=== PATIENT | male | born 1955 | race Caucasian/White ===

== ENCOUNTER → 2016-11-08 | Outpatient (CLI) | payer OTHER ==
[~2016-11-08] MED LIST: CPR500T PO; HYOS0.1216 PO; NO HOME MEDS; OXYC1TAB87 PO; PHEN200T27 PO
--- NOTE | 2016-11-08 19:52 | Diagnostic Imaging Report ---
PROCEDURE: CT cervical spine without contrast. TECHNIQUE: Multiple contiguous axial images were obtained through the cervical spine without the use of intravenous contrast. Sagittal and coronal reformations were then performed. INDICATION: Post cervical spine surgery in May 2016. No improvement in the pain postoperative. Pain on both sides of his neck radiating to both shoulders and headache. CORRELATION STUDY: MRI 07/16/2016 FINDINGS: There is straightening with very mild reversal of the normal cervical lordosis. Trace anterolisthesis of C3 on C4. Interbody fusion hardware at C5-C6 level is present with some metallic artifact. Hardware appears to be within the of disc space. Cervical vertebral body heights are maintained. Odontoid unremarkable. At C2-C3 and C3-C4, there is minimal density in the ventral spinal canal may be reflective of minimal endplate osteophyte or disc but results in no significant stenosis.. C4-C5 level with moderate loss of disc space height. No significant stenosis. C5-C6 level, fused, demonstrates extensive artifact over the spinal canal but appears to be without significant spinal canal stenosis. Neuroforamina are also obscured. However, some degree of endplate osteophyte with spurring does appear to be present, particularly on the left but does appear to be likely bilateral foraminal narrowing present. C6-C7 level with mild to moderate loss of disc space height. No significant stenosis. C7-T1 level unremarkable. IMPRESSION: 1. Interbody fusion of C5-C6 level with metallic artifact present. However, there does appear to be some degree of narrowing of the neuroforamina at this level owing to predominantly endplate spur-like formation. 2. Additional areas of mild disc space narrowing without findings to suggest significant canal or foraminal narrowing. Dictated by: Dictated on workstation # [id number]
== END ==
LOC: RAD 16:48
PROVIDERS: ATTEND Orthopaedic Surgery Orthopaedic Surgery of the Spine
DX: M54.2 Cervicalgia (principal); Z98.1 Arthrodesis status
CPT/HCPCS: 72125

== ENCOUNTER 2017-10-07 08:09 | Day surgery (SDC) | payer OTHER ==
[~2017-10-07] VITALS: Ht 180.3 cm; Wt 79.5 kg
[2017-10-07] VITALS (9 sets, daily range): BP systolic 118–146; BP diastolic 87–101
[2017-10-07 08:59] LABS: HEMOGLOBIN 14.5 G/DL (13.3-17.7); MEAN PLATELET VOLUME 10.5 FL (7.4-10.4); RED BLOOD COUNT 4.37 10^6/uL (4.35-5.85); RED CELL DISTRIBUTION WIDTH 12.1 % (10.0-14.5); WHITE BLOOD COUNT 4.6 10^3/uL (4.3-11.0)
[2017-10-07 09:06] LABS: INR 1.1 (0.8-1.4); PROTHROMBIN TIME PATIENT 13.8 SEC (12.2-14.7)
[2017-10-07] MEDS ORDERED: DICL75TA2 PO (09:25)
[2017-10-07] MEDS ORDERED: ACETAMINOPHEN 500 MG TAB (TYLENOL) PO PRN (10:15)
[2017-10-07] MEDS ORDERED: IOHEXOL 240 MGI/ML 20 ML (OMNIPAQUE) VIAL IV ONE (10:15)
--- NOTE | 2017-10-07 10:37 | Diagnostic Imaging Report ---
INDICATION: Neck pain. Patient present for cervical myelography. PROCEDURE: Patient was brought to the fluoroscopy suite, placed on the table in the prone position. Skin in the low back was prepped and draped in usual sterile fashion. Small amount of 1% lidocaine was utilized for local anesthesia. 22-gauge spinal needle was advanced into lumbar thecal sac at the L3 level. Approximately 12 mL of Omnipaque 240 was injected under fluoroscopic observation. Patient was then placed into Trendelenburg position to pass intrathecal contrast into the cervical canal. Patient tolerated the procedure well and was sent to CT for post myelography CT. A total of 1 minute and 12 seconds fluoroscopic time was utilized. IMPRESSION: Cervical myelography, as described. Further evaluation will be performed with post myelography CT. Dictated by: Dictated on workstation # [id number]
--- NOTE | 2017-10-07 11:47 | Pre-Procedure Progress Note ---
Pre-Procedure Progress Note H&P Reviewed The H&P was reviewed, patient examined and no changes noted. Date H&P Reviewed: Oct 07, 2017 Time H&P Reviewed: 09:00 Pre-Procedure Diagnosis: Neck pain. LIZA MORGAN MD Oct 07, 2017 11:47
--- NOTE | 2017-10-07 12:02 | Diagnostic Imaging Report ---
CLINICAL INDICATION: Patient with spinal stenosis. EXAM: Axial CT cervical myelogram with sagittal and coronal reformations. The injection of intrathecal contrast was performed by another physician. Please see their notes regarding the procedure. COMPARISON: CT scan of the cervical spine without contrast dated 11/08/2016. FINDINGS: Intrathecal contrast is seen within the thecal sac of the cervical spine and upper thoracic spine region. There is also intrathecal contrast seen extending to the posterior fossa. There is no intrathecal mass seen. There are again seen postop changes to the cervical spine with C5-C6 intervertebral disc prosthesis seen with no gross hardware complications. There is no acute cervical spine fracture. There is multilevel cervical spine degenerative disease with vertebral body spurs and mild facet arthropathy. C1-C2: There are stable degenerative spurs involving the atlanto-odontoid interval anteriorly. C2-C3: There is suspected small posterior disc herniation with mild thickening of the anterior epidural space region. There is no significant central canal or neuroforaminal narrowing. C3-C4: There is subtle stable grade 1 anterolisthesis of C3 on C4. There is suspected diffuse disc bulge with mild loss of intervertebral disc height and posterior disc herniation. There is mild central canal narrowing. There is mild left neuroforaminal narrowing. C4-C5: There is diffuse disc bulge with mild loss of intervertebral disc height. There is mild bilateral facet arthropathy. There is mild left neuroforaminal narrowing and no significant central canal narrowing. There is no significant right neuroforaminal narrowing. C5-C6: Intervertebral disc prosthesis seen with no complications. There are stable bilateral hypertrophic uncinate spurs (left side more than the right). There is stable mild to moderate bilateral bony neuroforaminal narrowing. C6-C7: There is suggestion of diffuse disc bulge with suspected small posterior disc osteophyte complex component. There is mild bilateral facet arthropathy. There is stable mild to moderate left bony neuroforaminal narrowing and mild right neuroforaminal narrowing. There is mild central canal narrowing. C7-T1: There is mild bilateral facet arthropathy. There is mild left neuroforaminal narrowing. There is no significant right neuroforaminal narrowing or central canal narrowing. IMPRESSION: 1: Stable C5-C6 intervertebral disc prosthesis with no complications. 2: Stable mild to moderate cervical spine degenerative disc disease, as described above. There is no significant central canal narrowing. Dictated by: Dictated on workstation # [id number]
== END 2017-10-07 13:20 | disposition home or self-care (01) ==
LOC: RAD 08:09
PROVIDERS: ATTEND Orthopaedic Surgery Orthopaedic Surgery of the Spine
DX: M48.03 Spinal stenosis, cervicothoracic region (principal); M50.221 Other cervical disc displacement at C4-C5 level; M46.83 Other specified inflammatory spondylopathies, cervicothoracic region; M43.12 Spondylolisthesis, cervical region; Z98.890 Other specified postprocedural states
CPT/HCPCS: 36415; 62284; 72126; 72240; 77002; 85027; 85610; 85730

== ENCOUNTER → 2018-11-14 | Outpatient (CLI) | payer OTHER ==
[~2018-11-14] MED LIST changes: +DICL75TA2 PO
--- NOTE | 2018-11-14 14:49 | Diagnostic Imaging Report ---
PROCEDURE: CT cervical spine without contrast. TECHNIQUE: Multiple contiguous axial images were obtained through the cervical spine without the use of intravenous contrast. Sagittal and coronal reformations were then performed. Auto Exposure Controls were utilized during the CT exam to meet ALARA standards for radiation dose reduction. INDICATION: Pain, radiculopathy and neck pain. COMPARISON: Compared with study 10/07/2017. FINDINGS: A solid and well incorporated anterior and interbody fusion C5-6 and C6-C7 have been performed. The alignment across, above and below the fusion is stable and anatomic. No osteolysis. No findings to suggest screw loosening or migration. No paravertebral mass, hemorrhage or fluid collection. There is no substantial bony canal stenosis. No substantial degree of foraminal encroachment. There has been no adverse development. IMPRESSION: Resolution of foraminal stenoses status post interval solid anterior and interbody multilevel lower cervical fusion, aligned anatomically. No findings of pseudoarthrosis or failure. No acute pathology or adverse development. Dictated by: Dictated on workstation # [id number]
== END ==
LOC: RAD 12:18
PROVIDERS: ATTEND Physician Assistant
DX: M54.12 Radiculopathy, cervical region (principal); Z98.1 Arthrodesis status
CPT/HCPCS: 72125

== ENCOUNTER 2020-11-21 11:26 | Outpatient (RCR) | payer OTHER | END 2020-11-29 | disposition home or self-care (01) | PROVIDERS: ATTEND Nurse Practitioner | DX: M54.2 Cervicalgia (principal); M62.89 Other specified disorders of muscle; Z98.1 Arthrodesis status ==

== ENCOUNTER 2020-12-07 16:15 | Outpatient (RCR) | payer OTHER | END 2021-01-25 16:15 | disposition home or self-care (01) | PROVIDERS: ATTEND Nurse Practitioner | DX: M22.42 Chondromalacia patellae, left knee (principal) ==

== ENCOUNTER 2021-02-23 15:44 | Outpatient (RCR) | payer OTHER | END 2021-03-05 | disposition home or self-care (01) | PROVIDERS: ATTEND Nurse Practitioner | DX: M54.2 Cervicalgia (principal); Z98.1 Arthrodesis status ==

== ENCOUNTER 2021-05-25 15:45 | Outpatient (RCR) | payer OTHER | END 2021-06-07 | disposition home or self-care (01) | PROVIDERS: ATTEND Nurse Practitioner | DX: M54.2 Cervicalgia (principal); Z98.1 Arthrodesis status ==

== ENCOUNTER 2021-08-08 10:28 | Outpatient (RCR) | payer OTHER | END 2021-08-11 | disposition home or self-care (01) | PROVIDERS: ATTEND Nurse Practitioner | DX: M54.2 Cervicalgia (principal); Z98.1 Arthrodesis status ==

== ENCOUNTER 2021-09-04 13:04 | Outpatient (RCR) | payer OTHER | END 2021-09-11 | disposition home or self-care (01) | PROVIDERS: ATTEND Nurse Practitioner | DX: M54.2 Cervicalgia (principal); Z98.1 Arthrodesis status ==

== ENCOUNTER 2021-09-20 14:56 | Outpatient (RCR) | payer OTHER | END 2021-10-09 | disposition home or self-care (01) | PROVIDERS: ATTEND Nurse Practitioner | DX: M54.2 Cervicalgia (principal); Z98.1 Arthrodesis status ==

== ENCOUNTER 2021-11-08 10:31 | Outpatient (RCR) | payer OTHER | END 2021-11-09 | disposition home or self-care (01) | PROVIDERS: ATTEND Nurse Practitioner | DX: M54.2 Cervicalgia (principal); Z98.1 Arthrodesis status ==

== ENCOUNTER 2021-11-11 08:43 | Emergency (ER) | payer OTHER ==
[~2021-11-11] VITALS: Ht 180.3 cm; Wt 78.0 kg
[2021-11-11] MEDS ORDERED: LIDOCAINE 1% INJ 50 ML (XYLOCAINE) VIAL ONE (09:13)
[2021-11-11] MEDS ORDERED: LIDOCAINE 1% INJ 20 ML VIAL INJ ONE (09:15)
[2021-11-11] MEDS ORDERED: TETANUS,DIPTH,PERTUSS P/F (BOOSTRIX) 0.5 ML VIAL IM ONE (09:15)
--- NOTE | 2021-11-11 09:38 | ED General ---
General Chief Complaint: Laceration Stated Complaint: LEFT THUMB LAC Nursing Triage Note: CUT THUMB WITH CLEAN KNIFE FROM KITCHEN DRAWER. BLEEDING HAS STOPPED. PT CLEANED AND COVERED WOUND LOKIE ENGINEER. UNSURE OF LAST TETANUS SHOT, BUT STATES THAT THE KNIFE WAS CLEAN. Source of Information: Patient Exam Limitations: No Limitations History of Present Illness Date Seen by Provider: Nov 11, 2021 Time Seen by Provider: 09:05 Initial Comments This 66-year-old gentleman presents to the emergency room with laceration at the base of his left thumb. He slipped while cutting sausage at breakfast. The knife was clean. He appears to have full range of motion and strength in the thumb. There is no distal change in sensation. Bleeding is controlled. He is uncertain of his tetanus immunization status. Allergies and Home Medications Allergies Coded Allergies: Meperidine HCl (Unverified Allergy, 02/01/12) morphine (Verified Adverse Reaction, Intermediate, hives, 02/10/12) Patient Home Medication List Home Medication List Reviewed: Yes Diclofenac Sodium (Diclofenac Sodium) 75 Mg Tablet.dr, 75 MG PO BID, (Reported) Entered as Reported by: GENESIS MCCOLLUM on 10/07/17 0925 Review of Systems Review of Systems Constitutional: no symptoms reported Musculoskeletal: no symptoms reported Skin: see HPI Psychiatric/Neurological: No Symptoms Reported Past Uqdsska-Krtgcp-Jynnpk Hx Patient Social History Tobacco Use?: No Use of E-Cig and/or Vaping dev: No Substance use?: No Alcohol Use?: No Pt feels they are or have been: No Immunizations Up To Date Tetanus Booster (TDap): Unknown PED Vaccines UTD: No Influenza Vaccine Up-to-Date: No; Not Current Past Medical History Surgeries: Yes Amputation (Traumatic amputation right great toe) Respiratory: No Cardiac: No Neurological: No Reproductive Disorders: No Genitourinary: Yes Kidney Stones Gastrointestinal: No Musculoskeletal: No Endocrine: No HEENT: No Cancer: No Psychosocial: No Physical Exam Vital Signs Vital Signs - First Documented 11/11/21 08:53 Temp 37.0 Pulse 69 Resp 18 B/P (MAP) 162/101 (121) Pulse Ox 98 O2 Delivery Room Air Capillary Refill : Less Than 3 Seconds Height, Weight, BMI Height: 5'11.00" Weight: 175lbs. 6.0oz. [id number]; 23.00 BMI Method:Stated General Appearance: No Apparent Distress, WD/WN HEENT: Normal ENT Inspection Respiratory: Lungs Clear, Normal Breath Sounds, No Accessory Muscle Use Cardiovascular: Regular Rate, Rhythm, No Murmur Extremity: Other (1.5 cm laceration on the medial aspect of the left thumb into the subcutaneous tissue. No tendon injury observed. Distal sensation intact. Range of motion and strength intact) Neurologic/Psychiatric: Alert, Oriented x3, No Motor/Sensory Deficits, Normal Mood/Affect Skin: Normal Color, Warm/Dry, Other (See extremity exam above) Procedures/Interventions Wound Location: Upper Extremities Other Wound Location Medial aspect at the base of left thumb Wound Length (cm): 1.5 Wound's Depth, Shape: linear, irregular, sub Q Wound Explored: clean Irrigated w/ Saline (ccs): 100 Betadine Prep?: Yes Anesthesia: 1% Lidocaine Volume Anesthetic (ccs): 3 Suture: Prolene Suture Size: 4-0 Number of Sutures: 3 Layer Closure?: 1 Sterile Dressing Applied?: Yes Progress Wound was sprayed with lidocaine. Skin was cleaned with alcohol. Anesthesia was provided with local lidocaine injection. Wound was then scrubbed with chlorhexidine and saline and rinsed. Betadine prep was applied. Wound was approximated by Karlo Kern, MS 4 under my supervision. There was good hemostasis. Progress/Results/Core Measures Suspected Sepsis SIRS Temperature: Pulse: 69 Respiratory Rate: 18 Blood Pressure 162 /101 Mean: 121 Results/Orders My Orders Orders - BANDAR ROOT MD Lidocaine 1% Inj 20 Ml (Xylocaine 1% Inj (11/11/21 09:15) Dipht,Pertuss(Acell),Tet Adult (Boostrix (11/11/21 09:15) Lidocaine 1% Inj 50 Ml (Xylocaine 1% Inj (11/11/21 09:13) Medications Given in ED Vital Signs/I&O 11/11/21 11/11/21 08:53 09:40 Temp 37.0 Pulse 69 63 Resp 18 18 B/P (MAP) 162/101 (121) 147/89 Pulse Ox 98 99 O2 Delivery Room Air Room Air Capillary Refill : Less Than 3 Seconds Blood Pressure Mean: 121 Departure Impression Primary Impression: Laceration of thumb Qualified Codes: S61.012A - Laceration without foreign body of left thumb without damage to nail, initial encounter Disposition: 01 HOME, SELF-CARE Condition: Improved Departure-Patient Inst. Referrals: NO,LOCAL PHYSICIAN (PCP/Family) Primary Care Physician Patient Instructions: Laceration Repair With Stitches (DC) Add. Discharge Instructions: Keep the wound clean and dry. Starting this evening you may wash your hands gently. Be careful not to rub over the stitches or disrupt the stitches in any way. Do not submerge until sutures are removed. Monitor for signs of infection such as increasing redness, increasing swelling, puslike drainage, or fever. Return to care promptly if you notice the symptoms. Keep the wound covered when you are sleeping, active, or in dirty environments. Leave open to air when resting in a clean environment. Return in 8 to 10 days to have sutures removed. Call with questions or concerns. Return to care if you have any other problems or concerns. All discharge instructions reviewed with patient and/or family. Voiced understanding. BANDAR ROOT MD Nov 11, 2021 09:38
[2021-11-11 09:40] VITALS: BP 147/89
== END 2021-11-11 09:47 | disposition home or self-care (01) ==
LOC: EDUNIT# 08:43 → ER 08:45
DX: S61.012A Laceration without foreign body of left thumb without damage to nail, initial encounter (principal); Z23 Encounter for immunization; W26.0XXA Contact with knife, initial encounter
CPT/HCPCS: 12001; 90715

== ENCOUNTER → 2022-04-11 | Outpatient (RCR) | payer MEDICARE, OTHER | END | disposition home or self-care (01) | PROVIDERS: ATTEND Anesthesiology Pain Medicine | DX: M46.92 Unspecified inflammatory spondylopathy, cervical region (principal) ==

== ENCOUNTER → 2022-05-11 | Outpatient (RCR) | payer MEDICARE, OTHER | END | disposition home or self-care (01) | PROVIDERS: ATTEND Anesthesiology Pain Medicine | DX: M46.92 Unspecified inflammatory spondylopathy, cervical region (principal) ==

== ENCOUNTER 2022-06-06 09:40 | Outpatient (RCR) | payer MEDICARE, OTHER | END 2022-06-11 | disposition home or self-care (01) | PROVIDERS: ATTEND Anesthesiology Pain Medicine | DX: M46.92 Unspecified inflammatory spondylopathy, cervical region (principal); M79.12 Myalgia of auxiliary muscles, head and neck ==

== ENCOUNTER → 2022-07-11 | Outpatient (RCR) | payer MEDICARE, OTHER | END | disposition home or self-care (01) | PROVIDERS: ATTEND Anesthesiology Pain Medicine | DX: M46.92 Unspecified inflammatory spondylopathy, cervical region (principal) ==

== ENCOUNTER 2022-08-08 11:17 | Outpatient (RCR) | payer MEDICARE, OTHER | END 2022-08-11 | disposition home or self-care (01) | PROVIDERS: ATTEND Anesthesiology Pain Medicine | DX: M79.12 Myalgia of auxiliary muscles, head and neck (principal); M46.92 Unspecified inflammatory spondylopathy, cervical region ==

== ENCOUNTER 2022-09-05 09:07 | Outpatient (RCR) | payer MEDICARE, OTHER | END 2022-09-11 | disposition home or self-care (01) | PROVIDERS: ATTEND Anesthesiology Pain Medicine | DX: M79.12 Myalgia of auxiliary muscles, head and neck (principal); M46.92 Unspecified inflammatory spondylopathy, cervical region ==

== ENCOUNTER 2022-10-03 11:26 | Outpatient (RCR) | payer MEDICARE, OTHER | END 2022-10-09 | disposition home or self-care (01) | PROVIDERS: ATTEND Anesthesiology Pain Medicine | DX: M79.12 Myalgia of auxiliary muscles, head and neck (principal); M46.92 Unspecified inflammatory spondylopathy, cervical region ==

== ENCOUNTER 2022-10-31 14:22 | Outpatient (RCR) | payer MEDICARE, OTHER | END 2022-11-09 | disposition home or self-care (01) | PROVIDERS: ATTEND Anesthesiology Pain Medicine | DX: M79.12 Myalgia of auxiliary muscles, head and neck (principal); M46.92 Unspecified inflammatory spondylopathy, cervical region ==

== ENCOUNTER 2022-11-28 11:14 | Outpatient (RCR) | payer MEDICARE, OTHER | END 2022-12-09 | disposition home or self-care (01) | PROVIDERS: ATTEND Anesthesiology Pain Medicine | DX: M79.12 Myalgia of auxiliary muscles, head and neck (principal); M46.92 Unspecified inflammatory spondylopathy, cervical region ==

== ENCOUNTER → 2023-01-09 | Outpatient (RCR) | payer MEDICARE, OTHER | END | disposition home or self-care (01) | PROVIDERS: ATTEND Anesthesiology Pain Medicine | DX: M79.12 Myalgia of auxiliary muscles, head and neck (principal); M46.92 Unspecified inflammatory spondylopathy, cervical region ==

== ENCOUNTER 2023-03-26 11:17 | Emergency (ER) | payer MEDICARE, OTHER ==
[~2023-03-26] VITALS: Ht 180.3 cm; Wt 86.1 kg
--- NOTE | 2023-03-26 11:56 | ED GU-Male ---
General Chief Complaint: Back Problems Stated Complaint: KIDNEY PAIN | HX OF KIDNEY STONES Nursing Triage Note: PT AMB TO RM 7 WITH CC OF L LOWER BACK PAIN AND BURNING WITH URINATION SINCE 0700 THIS AM. PT BELIEVES HE IS PASSING A KIDNEY STONE. DENIES INJURY Source: patient Exam Limitations: no limitations (VERÓNICA NORMAN APRN) History of Present Illness Date Seen by Provider: Mar 26, 2023 Time Seen by Provider: 11:40 Initial Comments 67-year-old male presents to the ER with complaint of left flank pain starting this morning at 7:15 AM. He states he has a history of kidney stones, states that this feels the same. Last kidney stone was 10 to 15 years ago. Reports history of lithotripsy and ureteral stents. He reports that he was having pain for approximately 4 hours, states that the pain has now subsided. Denies radiation of pain into abdomen. Reports vomiting due to the pain, denies any nausea currently. Reports dysuria, denies fevers. (VERÓNICA NORMAN APRN) Allergies and Home Medications Allergies Coded Allergies: meperidine HCl (Unverified Allergy, Unknown, 03/26/23) morphine (Verified Adverse Reaction, Intermediate, hives, 02/10/12) Patient Home Medication List Home Medication List Reviewed: Yes (VERÓNICA NORMAN APRN) Diclofenac Sodium (Diclofenac Sodium) 75 Mg Tablet.dr, 75 MG PO BID, (Reported) Entered as Reported by: GENESIS MCCOLLUM on 10/07/17 0925 Tamsulosin HCl (Flomax) 0.4 Mg Cap, 0.4 MG PO DAILY Prescribed by: Verónica Woods on 03/26/23 1326 Review of Systems Review of Systems Constitutional: see HPI (VERÓNICA NORMAN APRN) Past Uyfxjvg-Rturkl-Qxvjir Hx Patient Social History Tobacco Use?: No Substance use?: No Alcohol Use?: Yes Alcohol Frequency: Once in a while Pt feels they are or have been: No (VERÓNICA NORMAN APRN) Immunizations Up To Date Tetanus Booster (TDap): Unknown PED Vaccines UTD: No (VERÓNICA NORMAN APRN) Past Medical History Surgery/Hospitalization HX: EYE CANCER Surgeries: Yes Amputation Respiratory: No Cardiac: No Neurological: No Reproductive Disorders: No Genitourinary: Yes Kidney Stones Gastrointestinal: No Musculoskeletal: No Endocrine: No HEENT: No Cancer: No Psychosocial: No (VERÓNICA NORMAN APRN) Physical Exam Vital Signs Vital Signs - First Documented 03/26/23 11:25 Pulse 75 Resp 18 B/P (MAP) 147/105 (119) Pulse Ox 97 O2 Delivery Room Air (BANDAR ROOT MD) Vital Signs Capillary Refill : Less Than 3 Seconds (VERÓNICA NORMAN APRN) Height, Weight, BMI Height: 5'11.00" Weight: 175lbs. 6.0oz. [id number]; 26.00 BMI Method:Stated General Appearance: WD/WN, no apparent distress Neck: supple, normal inspection Cardiovascular: regular rate, rhythm Respiratory: lungs clear, normal breath sounds, no respiratory distress, no accessory muscle use Back: no CVA tenderness Extremities: normal range of motion, normal inspection Neurologic/Psychiatric: alert, normal mood/affect Skin: normal color, warm/dry (VEÓRNICA NORMAN APRN) Procedures/Interventions Suture Size: 4-0 (VERÓNICA NORMAN APRN) Progress/Results/Core Measures Suspected Sepsis SIRS Temperature: Pulse: 75 Respiratory Rate: 18 Laboratory Tests 03/26/23 11:48: White Blood Count 9.4 Blood Pressure 147 /105 Mean: 119 Laboratory Tests 03/26/23 11:48: Creatinine 0.87, Platelet Count 234, Total Bilirubin 0.6 (VERÓNICA NORMAN APRN) Results/Orders Lab Results Laboratory Tests Test 03/26/23 11:48 03/26/23 11:59 Range/Units White Blood Count 9.4 4.3-11.0 10^3/uL Red Blood Count 4.53 4.30-5.52 10^6/uL Hemoglobin 14.7 13.3-17.7 g/dL Hematocrit 46 40-54 % Mean Corpuscular Volume 102 H 80-99 fL Mean Corpuscular Hemoglobin 33 25-34 pg Mean Corpuscular Hemoglobin Concent 32 32-36 g/dL Red Cell Distribution Width 12.1 10.0-14.5 % Platelet Count 234 130-400 10^3/uL Mean Platelet Volume 10.3 9.0-12.2 fL Immature Granulocyte % (Auto) 0 % Neutrophils (%) (Auto) 86 H 42-75 % Lymphocytes (%) (Auto) 9 L 12-44 % Monocytes (%) (Auto) 4 0-12 % Eosinophils (%) (Auto) 1 0-10 % Basophils (%) (Auto) 0 0-10 % Neutrophils # (Auto) 8.0 H 1.8-7.8 10^3/uL Lymphocytes # (Auto) 0.9 L 1.0-4.0 10^3/uL Monocytes # (Auto) 0.4 0.0-1.0 10^3/uL Eosinophils # (Auto) 0.1 0.0-0.3 10^3/uL Basophils # (Auto) 0.0 0.0-0.1 10^3/uL Immature Granulocyte # (Auto) 0.0 0.0-0.1 10^3/uL Sodium Level 140 135-145 MMOL/L Potassium Level 4.4 3.6-5.0 MMOL/L Chloride Level 107 98-107 MMOL/L Carbon Dioxide Level 24 21-32 MMOL/L Anion Gap 9 5-14 MMOL/L Blood Urea Nitrogen 19 H 7-18 MG/DL Creatinine 0.87 0.60-1.30 MG/DL Estimat Glomerular Filtration Rate 96 BUN/Creatinine Ratio 22 Glucose Level 108 H 70-105 MG/DL Calcium Level 9.5 8.5-10.1 MG/DL Corrected Calcium 9.3 8.5-10.1 MG/DL Total Bilirubin 0.6 0.1-1.0 MG/DL Aspartate Amino Transf (AST/SGOT) 20 5-34 U/L Alanine Aminotransferase (ALT/SGPT) 19 0-55 U/L Alkaline Phosphatase 74 40-136 U/L Total Protein 7.8 6.4-8.2 GM/DL Albumin 4.3 3.2-4.5 GM/DL Urine Color YELLOW Urine Clarity CLEAR Urine pH 5.5 5-9 Urine Specific [place] 1.025 H 1.016-1.022 Urine Protein 2+ H NEGATIVE Urine Glucose (UA) NEGATIVE NEGATIVE Urine Ketones TRACE H NEGATIVE Urine Nitrite NEGATIVE NEGATIVE Urine Bilirubin 1+ H NEGATIVE Urine Urobilinogen 0.2 < = 1.0 MG/DL Urine Leukocyte Esterase NEGATIVE NEGATIVE Urine RBC (Auto) 3+ H NEGATIVE Urine RBC >100 H /HPF Urine WBC 0-2 /HPF Urine Crystals NONE /LPF Urine Bacteria TRACE /HPF Urine Casts NONE /LPF Urine Mucus SMALL H /LPF Urine Culture Indicated NO (BANDAR ROOT MD) Vital Signs/I&O 03/26/23 03/26/23 11:25 13:50 Pulse 75 75 Resp 18 18 B/P (MAP) 147/105 (119) 140/100 Pulse Ox 97 97 O2 Delivery Room Air Room Air (BANDAR ROOT MD) Vital Signs/I&O Capillary Refill : Less Than 3 Seconds (VERÓNICA NORMAN APRN) Blood Pressure Mean: 119 Progress Note : Progress Note Patient seen and evaluated, resting in bed, no acute distress. Based on exam and symptoms, differential diagnosis includes but not limited to nephrolithiasis, pyelonephritis, musculoskeletal pain. Work-up initiated in cluded CBC, CMP, urinalysis, CT abdomen pelvis without contrast. IV fluids ordered. Patient currently not having any pain or nausea, will hold off on pain and nausea medications. [address] reviewed. CBC shows slightly elevated neutrophil percentage 86, white blood cells normal. CMP shows slightly elevated BUN 19. Creatinine and GFR normal. Urinalysis shows 3+ RBCs, negative for nitrites, leukocytes, WBCs, shows trace bacteria. Slight asymmetric dilation of the left ureter without ureteral stone, there is a 3 mm stone within the urinary bladder which is likely recently passed. No additional renal or ureteral stones. No hydronephrosis. Results discussed with patient. Will discharge with Flomax to help pass the stone and the remainder of the way. Patient states he does not want any prescriptions for pain or nausea medication. Discharge instructions and return precautions provided. (VERÓNICA NORMAN APRN) Diagnostic Imaging Diagonstic Imaging: CT Plain Films/CT/US/NM/MRI: abdomen, pelvis Comments [facility]. [place], [place] NAME: EUSEBIAJORGE Camilla [facility] REC#: [id number] PT STATUS: DEP ER : 1955 PHYSICIAN: VERÓNICA NORMAN APRN ADMIT DATE: 03/26/23/ER Signed Date of Exam:03/26/23 CT ABD/PELVIS WO(KIDNEY STONE) CT ABD/PELVIS WO(KIDNEY STONE) TECHNIQUE: Unenhanced CT imaging of the abdomen and pelvis was performed. 2-D reformats are created and submitted for interpretation. Automatic exposure controls were utilized to optimize patient dose. INDICATION: Flank pain COMPARISON: None available. FINDINGS: Lower chest: The lung bases are clear. No pericardial or pleural effusion. Peritoneum: No free intraperitoneal air or fluid. Liver and biliary system: Unenhanced liver is normal. The gallbladder is normal. No biliary duct dilation. Spleen and Pancreas: Spleen is normal. Unenhanced pancreas is grossly normal. Adrenals: Normal. tract: No hydronephrosis or renal stones. Slight asymmetric dilation of the left ureter without ureteral stone. However, there is a 3 mm stone in the dependent aspect of the urinary bladder, likely due to a recently passed stone. Urinary bladder is normally filled. Prostate is borderline enlarged. GI tract: Stomach is decompressed. No bowel obstruction. No pericolonic inflammatory changes. Normal appendix. Vasculature and Lymph nodes: Normal caliber aorta. No abdominal or pelvic lymphadenopathy. Musculoskeletal: No concerning osseous lesion. IMPRESSION: 1. There is a 3 mm stone within the urinary bladder likely due to a recently passed stone. Given asymmetric mild distention of the left ureter, this is likely passed on the left side. 2. No additional renal or ureteral stones. No hydronephrosis. Dictated by: Dictated on workstation # [id number] Dict: 03/26/23 1216 Trans: 03/26/23 1416 CV [id number] Interpreted by: JAYESH MASSEY MD Electronically signed by: JAYESH MASSEY MD 03/26/23 1416 (EMERSONVERÓNICA CHASE APRN) Departure Impression Primary Impression: Left nephrolithiasis Disposition: 01 HOME, SELF-CARE Condition: Stable Departure-Patient Inst. Decision time for Depature: 13:24 (VERÓNICA NORMAN APRN) Referrals: RUDDY UREÑA APRN (PCP/Family) Primary Care Physician Patient Instructions: Kidney stones in adults Add. Discharge Instructions: Make sure you drink plenty water. Take Flomax once a day until you pass the stone. Take Tylenol or ibuprofen as needed for pain. Return for any new, concerning, or worsening symptoms. All discharge instructions reviewed with patient and/or family. Voiced understanding. Scripts Tamsulosin HCl (Flomax) 0.4 Mg Cap 0.4 MG PO DAILY for 14 Days, #14 CAP 0 Refills Prov: EMERSONVERÓNICA Umanzor APRN 03/26/23 ATTENDING PHYSICIAN NOTE: I was physically present as attending physician in the emergency department during the care of this patient. I briefly discussed medical therapies for this patient with Verónica Norman NP. I did not personally interview or examine this patient and I was not otherwise directly involved in the decision making or delivery of care for this patient. (BANDAR ROOT MD) VERÓNICA NORMAN APRN Mar 26, 2023 11:56 BANDAR ROOT MD Mar 28, 2023 04:23
[2023-03-26 11:58] LABS: BASOPHILS % (AUTO) 0 % (0-10); EOSINOPHILS # (AUTO) 0.1 10^3/uL (0.0-0.3); EOSINOPHILS % (AUTO) 1 % (0-10); HEMATOCRIT 46 % (40-54); HEMOGLOBIN 14.7 g/dL (13.3-17.7); LYMPHOCYTES # (AUTO) 0.9 10^3/uL (1.0-4.0); LYMPHOCYTES % (AUTO) 9 % (12-44); MEAN CORPUSCULAR HEMOGLOBIN 33 pg (25-34); MEAN CORPUSCULAR HGB CONC 32 g/dL (32-36); MEAN CORPUSCULAR VOLUME 102 fL (80-99); MEAN PLATELET VOLUME 10.3 fL (9.0-12.2); MONOCYTES # (AUTO) 0.4 10^3/uL (0.0-1.0); MONOCYTES % (AUTO) 4 % (0-12); NEUTROPHILS % (AUTO) 86 % (42-75); PLATELET COUNT 234 10^3/uL (130-400); WHITE BLOOD COUNT 9.4 10^3/uL (4.3-11.0)
[2023-03-26] MEDS ORDERED: NS IV 1000 ML 1,000 ML IV SCH (12:00)
[2023-03-26 12:06] LABS: ALBUMIN 4.3 GM/DL (3.2-4.5); POTASSIUM 4.4 MMOL/L (3.6-5.0)
[2023-03-26 12:07] LABS: CALCIUM 9.5 MG/DL (8.5-10.1)
[2023-03-26 12:08] LABS: TOTAL PROTEIN 7.8 GM/DL (6.4-8.2)
[2023-03-26 12:10] LABS: BILIRUBIN,TOTAL 0.6 MG/DL (0.1-1.0)
[2023-03-26 12:12] LABS: CREATININE SERUM 0.87 MG/DL (0.60-1.30)
[2023-03-26 12:22] LABS: CLARITY,URINE CLEAR; COLOR,URINE YELLOW; GLUCOSE, URINE (UA) NEGATIVE (NEGATIVE); PH,URINE 5.5 (5-9); PROTEIN,URINE 2+ (NEGATIVE)
--- NOTE | 2023-03-26 12:22 | Diagnostic Imaging Report ---
CT ABD/PELVIS WO(KIDNEY STONE) TECHNIQUE: Unenhanced CT imaging of the abdomen and pelvis was performed. 2-D reformats are created and submitted for interpretation. Automatic exposure controls were utilized to optimize patient dose. INDICATION: Flank pain COMPARISON: None available. FINDINGS: Lower chest: The lung bases are clear. No pericardial or pleural effusion. Peritoneum: No free intraperitoneal air or fluid. Liver and biliary system: Unenhanced liver is normal. The gallbladder is normal. No biliary duct dilation. Spleen and Pancreas: Spleen is normal. Unenhanced pancreas is grossly normal. Adrenals: Normal. tract: No hydronephrosis or renal stones. Slight asymmetric dilation of the left ureter without ureteral stone. However, there is a 3 mm stone in the dependent aspect of the urinary bladder, likely due to a recently passed stone. Urinary bladder is normally filled. Prostate is borderline enlarged. GI tract: Stomach is decompressed. No bowel obstruction. No pericolonic inflammatory changes. Normal appendix. Vasculature and Lymph nodes: Normal caliber aorta. No abdominal or pelvic lymphadenopathy. Musculoskeletal: No concerning osseous lesion. IMPRESSION: 1. There is a 3 mm stone within the urinary bladder likely due to a recently passed stone. Given asymmetric mild distention of the left ureter, this is likely passed on the left side. 2. No additional renal or ureteral stones. No hydronephrosis. Dictated by: Dictated on workstation # [id number]
[2023-03-26 12:23] LABS: BACTERIA,URINE TRACE /HPF; BILIRUBIN,URINE 1+ (NEGATIVE); KETONES,URINE TRACE (NEGATIVE); LEUKOCYTE ESTERASE ,URINE NEGATIVE (NEGATIVE); NITRITE,URINE NEGATIVE (NEGATIVE); RBC,URINE >100 /HPF; WBC,URINE 0-2 /HPF
[2023-03-26] MEDS ORDERED: TMSL.4C PO (13:26)
[2023-03-26] MEDS ORDERED: TAMSULOSIN 0.4 MG (FLOMAX) CAP PO SCH ×2 (13:45→18:00)
[2023-03-26 13:50] VITALS: BP 140/100
== END 2023-03-26 13:50 | disposition home or self-care (01) ==
LOC: EDUNIT# 11:17 → ER 11:20
DX: N20.0 Calculus of kidney (principal); Z96.0 Presence of urogenital implants; Z98.890 Other specified postprocedural states
CPT/HCPCS: 36415; 74176; 80053; 81000; 85025